=== PATIENT | male | born 1985 | race Hispanic/Latino ===

== ENCOUNTER 2016-10-18 17:37 | Emergency (ER) | payer MEDICAID ==
[2016-10-18 17:44] VITALS: RESP 16; O2SAT 98
[2016-10-18 18:15] LABS: RBC URINE < 1 /hpf (0-3); TRANSITIONAL EPITHIAL < 1 /hpf (0-3); URINE BACTERIA OCC (<OCC); URINE BILIRUBIN NEGATIVE (NEGATIVE); URINE BLOOD NEGATIVE (NEGATIVE); URINE COLOR Straw (YELLOW); URINE GLUCOSE (UA) NORMAL (Normal); URINE KETONE NEGATIVE (NEGATIVE); URINE PROTEIN NEGATIVE (NEGATIVE); URINE UROBILINOGEN NORMAL mg/dL (0.2-1.0); WBC URINE 9 /hpf (0-5)
[2016-10-18 18:16] LABS: URINE LEUKOCYTE ESTERASE 1+ Leu/uL (Negative)
--- NOTE | 2016-10-18 19:59 | C.PDOC ---
History Of Present Illness Pt c/o left testicle pain and swelling. Time Seen by Provider: 10/18/16 17:47 Chief Complaint (Nursing): Male Genitourinary History Per: Patient Onset/Duration Of Symptoms: Days (1) Current Symptoms Are (Timing): Still Present Severity: Moderate Quality Of Discomfort: "Pain" Alleviating Factors: None Additional History Per: Prior Records Past Medical History Reviewed: Historical Data, Nursing Documentation, Vital Signs Vital Signs: Last Vital Signs Temp 98.3 F 10/18/16 17:42 Pulse 79 10/18/16 17:42 Resp 16 10/18/16 17:42 BP 111/76 10/18/16 17:42 Pulse Ox 98 10/18/16 19:59 - Medical History PMH: Sexually Transmitted Disease Surgical History: No Surg Hx Family History: States: Unknown Family Hx - Social History Hx Alcohol Use: No Hx Substance Use: No Review Of Systems Except As Marked, All Systems Reviewed And Found Negative. Constitutional: Negative for: Fever, Weakness Cardiovascular: Negative for: Chest Pain Respiratory: Negative for: Shortness of Breath Gastrointestinal: Negative for: Vomiting, Abdominal Pain Genitourinary: Positive for: Dysuria (mild), Scrotal Pain. Negative for: Penile Discharge Musculoskeletal: Negative for: Neck Pain, Back Pain Skin: Negative for: Rash Neurological: Negative for: Weakness, Numbness, Seizures, Altered Mental Status Physical Exam - Physical Exam Appears: Non-toxic, No Acute Distress Skin: Normal Color, Warm, Dry, No Rash Head: Atraumatic, Normacephalic Eye(s): bilateral: Normal Inspection, PERRL, EOMI Neck: Normal ROM, Supple Cardiovascular: Rhythm Regular Respiratory: Normal Breath Sounds, No Accessory Muscle Use Gastrointestinal/Abdominal: Soft, No Tenderness Back: No CVA Tenderness Male Genital: Testicular Tenderness (left), Testicular Swelling (mild left), No Inguinal Tenderness, No Inguinal Swelling Extremity: Normal ROM Neurological/Psych: Oriented x3, Normal Motor, Normal Sensation ED Course And Treatment O2 Sat by Pulse Oximetry: 98 Pulse Ox Interpretation: Normal - CT Scan/US Testicular US Other Rad Studies (CT/US): Read By Radiologist, Radiology Report Reviewed CT/US Interpretation: IMPRESSION: Left epididymitis Disposition Counseled Patient/Family Regarding: Studies Performed, Diagnosis, Need For Followup, Rx Given - Disposition Disposition: HOME/ ROUTINE Disposition Time: 20:46 Condition: STABLE Additional Instructions: Practice safe sex. Always use condoms. Follow up with your doctor or the clinic. Return to the ER if you develop fever, worsening of symptoms or if you have any other concerns. Prescriptions: Doxycycline Hyclate 100 mg PO BID #28 capsule Instructions: Epididymitis (ED) Forms: [facility] - Clinical Impression Clinical Impression: Left epididymitis
--- NOTE | 2016-10-18 20:29 | US ---
EXAM: US Scrotum CLINICAL HISTORY: 31 years old, male; Pain; Scrotum pain; Additional info: Left testicle pain TECHNIQUE: Real-time ultrasound of the scrotum with color Doppler and image documentation. EXAM DATE/TIME: 10/18/2016 5:54 PM COMPARISON: There are no prior studies for comparison. FINDINGS: Right Right testicle measures approximately 4.56 x 2.14 x 2.98 cm. Echotexture is uniform. There are no testicular masses. There is expected intratesticular blood flow. There is minimal echogenic fluid. Right epididymal head measures approximately 12 x 10 mm. There are epididymal head cysts. Left There is a moderate-sized left hydrocele. There is left scrotal skin thickening. Left varicocele is demonstrated on color imaging There is diffuse enlargement of the epididymis. Left epididymal head measures approximately 22 x 12 mm. There is epididymal head cyst. There is diffuse enlargement of the tail and body of the epididymis. Texture is heterogeneous. Epididymis is hyperemic on color Doppler imaging. Left testicle measures approximately 4.35 x 2.49 x 3.17 cm. Echotexture is uniform. There is mild hyperemia on color and spectral imaging. IMPRESSION: Left epididymitis
[2016-10-18] MEDS ORDERED: cefTRIAXone (Rocephin) 250 mg Inj IM STA (20:37)
[2016-10-18] MEDS ORDERED: cefTRIAXone 250 MG in Lidocaine Hydrochloride 0.9 ML IM ONE (21:00)
[2016-10-18 21:32] VITALS: BP 116/80; PULSE 82; TEMP 98.7
== END 2016-10-18 20:45 | disposition home or self-care (01) ==
LOC: C.ER 17:37
DX: N45.1 Epididymitis (principal)
CPT/HCPCS: 76870; 81001; 87086; 87491; 87591; 96372; 99285; J0696

== ENCOUNTER 2016-11-22 18:40 | Emergency (ER) | payer MEDICAID ==
[2016-11-22 18:49] VITALS: BP 112/66; PULSE 83; RESP 19; TEMP 98.1; O2SAT 97
[2016-11-22 19:45] LABS: RBC URINE 157 /hpf (0-3); URINE BACTERIA OCC (<OCC); URINE BILIRUBIN NEGATIVE (NEGATIVE); URINE BLOOD 3+ (NEGATIVE); URINE COLOR Yellow (YELLOW); URINE GLUCOSE (UA) NORMAL (Normal); URINE KETONE NEGATIVE (NEGATIVE); URINE LEUKOCYTE ESTERASE NEG Leu/uL (Negative); URINE PROTEIN NEGATIVE (NEGATIVE); WBC URINE 2 /hpf (0-5)
--- NOTE | 2016-11-22 20:46 | C.PDOC ---
History Of Present Illness 31 y/o male reports blood coming from penis after ejaculating from masturbation just [employer]. . pt unable to quantify amount of blood, no longer bleeding. pt denies dysuria, frequency, penile discharge. teste pain or swelling. Time Seen by Provider: 11/22/16 19:28 Chief Complaint (Nursing): Male Genitourinary History Per: Patient History/Exam Limitations: no limitations Onset/Duration Of Symptoms: Hrs (1) Current Symptoms Are (Timing): Better Severity: Moderate Alleviating Factors: None Recent travel outside of the [place]: No Past Medical History Reviewed: Historical Data, Nursing Documentation, Vital Signs Vital Signs: Last Vital Signs Temp 98.1 F 11/22/16 18:45 Pulse 83 11/22/16 18:45 Resp 19 11/22/16 18:45 BP 112/66 11/22/16 18:45 Pulse Ox 97 11/22/16 20:51 - Medical History PMH: Kidney Stones, Sexually Transmitted Disease Surgical History: No Surg Hx Family History: States: Unknown Family Hx - Social History Hx Alcohol Use: Yes Hx Substance Use: No - Immunization History Hx Tetanus Toxoid Vaccination: No Hx Influenza Vaccination: No Hx Pneumococcal Vaccination: No Review Of Systems Constitutional: Negative for: Fever, Chills Cardiovascular: Negative for: Chest Pain Respiratory: Negative for: Cough, Shortness of Breath Gastrointestinal: Negative for: Nausea, Vomiting, Abdominal Pain Genitourinary: Negative for: Dysuria, Penile Discharge, Penile Pain (tingling sensaiton) Physical Exam - Physical Exam Appears: Non-toxic, Toxic Skin: Warm, Dry Head: Atraumatic, Normacephalic Eye(s): bilateral: Normal Inspection Nose: Normal Oral Mucosa: Moist Tongue: Normal Appearing Teeth: Normal Dentition Throat: Normal Neck: Normal ROM Cardiovascular: Rhythm Regular, No Murmur Respiratory: Normal Breath Sounds, No Accessory Muscle Use, No Rhonchi, No Wheezing Gastrointestinal/Abdominal: Normal Exam, Soft, No Tenderness Back: Normal Inspection, No CVA Tenderness Male Genital: Normal Inspection, No Testicular Tenderness, No Testicular Swelling, No Inguinal Tenderness, No Inguinal Swelling, No Scrotal Swelling, Circumcised Extremity: No Pedal Edema, No Calf Tenderness Neurological/Psych: Oriented x3, Normal Speech, Normal Cognition, Normal Cranial Nerves, Cerebellar Signs ED Course And Treatment O2 Sat by Pulse Oximetry: 97 Medical Decision Making Medical Decision Making: pt with blood from penis after ejaculating after masturbation. pt awaiting gc/ chlamydia from testing done on at another facility; declines treatment for sti now, will wait for results. pt advised to f/u with urology, abstinence until sti tests resulted Disposition Counseled Patient/Family Regarding: Diagnosis, Need For Followup - Disposition Referrals: Marcos Grace MD [Staff Provider] - Disposition: HOME/ ROUTINE Disposition Time: 20:49 Condition: STABLE Additional Instructions: Recommend abstinence until sti test results in. If positive, both oyu and partner need treatment. Follow up with urologist for further evaluation of blood. Return to ER for any worsening symptoms. Forms: General Discharge Instructions - Clinical Impression Clinical Impression: Hematuria of undiagnosed cause
== END 2016-11-22 20:57 | disposition home or self-care (01) ==
LOC: C.ER 18:40
DX: R31.9 Hematuria, unspecified (principal)